=== PATIENT | male | born 2000 | race Hispanic/Latino ===

== ENCOUNTER 2022-12-20 02:01 | Observation (INO) | payer BC ==
[~2022-12-20] VITALS: Ht 167.6 cm; Wt 68.0 kg
[2022-12-20] VITALS (19 sets, daily range): BP systolic 77–105; BP diastolic 45–73
[~2022-12-20 02:01] MED LIST: [UNRECOGNIZED DRUG - REMARK]
[2022-12-20 02:40] LABS: BASO% 0.3 % (0-3); EOS% 1.8 % (0-8); HEMATOCRIT 42.4 % (39.0-50.0); HEMOGLOBIN 14.1 g/dl (14.0-18.0); IMMATURE GRANULOCYTES 0.1 % (0.0-5.0); LYMPH% 19.2 % (15-41); MEAN CELL VOLUME 90.6 fL CALC (80.0-100.0); MEAN CORPUSCULAR HGB 30.1 pG CALC (26.0-32.0); MEAN CORPUSCULAR HGB CONC 33.3 g/dL CAL (32.0-36.0); MONO% 7.8 % (2-13); NEUT# 9.75 thou/uL (1.82-7.42); NEUT% 70.8 % (42-76); RED BLOOD COUNT 4.68 mill/uL (4.70-6.10); RED CELL DISTRI WIDTH 12.6 % (11.5-15.5)
[2022-12-20 02:46] LABS: ALBUMIN 4.8 g/dL (3.2-5.0); ALKALINE PHOSPHATASE 59 u/l (38-126); ANION GAP 16 (6-22 (CALC)); BILIRUBIN, TOTAL 0.8 mg/dL (0.2-1.3); BUN 10 mg/dL (9-20); BUN/CREATININE RATIO 13 (12-20 (CALC)); CARBON DIOXIDE 23 mmol/l (22-30); CHLORIDE 104 mmol/l (95-108); CREATININE 0.8 mg/dL (0.7-1.3); GFR FOR AFR.AMER. > 60 ML/MIN (>=60 (CALC)); GFR OTHER RACES > 60 ML/MIN (>=60 (CALC)); LIPASE 44 u/l (23-300); POTASSIUM 3.9 mmol/l (3.5-5.1); SGOT/AST 22 u/l (17-59); SODIUM 138 mmol/l (137-146); TOTAL PROTEIN 7.5 g/dL (6.3-8.2)
[2022-12-20 02:56] LABS: URINE BILIRUBIN - DIPSTICK SMALL (NEGATIVE); URINE BLOOD DIPSTICK TRACE-INTACT (NEGATIVE); URINE COLOR YELLOW; URINE GLUCOSE - DIPSTICK NEGATIVE (NEGATIVE); URINE KETONE 15 mg/dL (NEGATIVE); URINE LEUK ESTERASE NEGATIVE (NEGATIVE); URINE PROTEIN - DIPSTICK NEGATIVE (NEG-TRACE); URINE SPECIFIC GRAVITY >=1.030; URINE UROBILINOGEN - DIPSTICK 0.2 E.U./dL (0.2)
[2022-12-20 02:57] LABS: URINE NITRITE - DIPSTICK NEGATIVE (Negative)
[2022-12-20] MEDS ORDERED: PERCOCET 5/325M1 TAB PO (08:15)
[2022-12-23] MEDS ORDERED: TORADOL PO (13:44)
[2022-12-23] MEDS ORDERED: ONDANSETRON4 MG PO (13:44)
== END 2022-12-20 11:03 | disposition home or self-care (01) | DRG 343 ==
LOC: ED 02:01 → MS2 05:30
PROVIDERS: Family Medicine; ADMIT Surgery; ATTEND Surgery
PROC: 0DTJ4ZZ Resection of Appendix, Percutaneous Endoscopic Approach (ICD-10-PCS; principal; 2022-12-20)
DX: K35.30 Acute appendicitis with localized peritonitis, without perforation or gangrene (principal)
CPT/HCPCS: G0378; J0131; Q9967

== ENCOUNTER 2022-12-23 14:06 | Emergency (ER) | payer BC ==
[~2022-12-23] VITALS: Ht 165.1 cm; Wt 63.0 kg
[2022-12-23] VITALS (10 sets, daily range): BP systolic 83–106; BP diastolic 53–66
[~2022-12-23 14:06] MED LIST changes: +ONDANSETRON4 MG PO; +PERCOCET 5/325M1 TAB PO; +TORADOL PO
[2022-12-23 14:34] LABS: URINE BILIRUBIN - DIPSTICK NEGATIVE (NEGATIVE); URINE BLOOD DIPSTICK NEGATIVE (NEGATIVE); URINE COLOR YELLOW; URINE GLUCOSE - DIPSTICK NEGATIVE (NEGATIVE); URINE KETONE NEGATIVE (NEGATIVE); URINE LEUK ESTERASE NEGATIVE (NEGATIVE); URINE NITRITE - DIPSTICK NEGATIVE (Negative); URINE PH 6.5 (4.5-8.0); URINE PROTEIN - DIPSTICK NEGATIVE (NEG-TRACE); URINE SPECIFIC GRAVITY 1.015; URINE UROBILINOGEN - DIPSTICK 0.2 E.U./dL (0.2)
[2022-12-23 14:34] LABS: BASO% 0.6 % (0-3); EOS% 7.4 % (0-8); HEMATOCRIT 47.3 % (39.0-50.0); HEMOGLOBIN 15.3 g/dl (14.0-18.0); IMMATURE GRANULOCYTES 0.2 % (0.0-5.0); LYMPH% 40.7 % (15-41); MEAN CELL VOLUME 91.5 fL CALC (80.0-100.0); MEAN CORPUSCULAR HGB 29.6 pG CALC (26.0-32.0); MEAN CORPUSCULAR HGB CONC 32.3 g/dL CAL (32.0-36.0); MONO% 9.8 % (2-13); NEUT# 2.76 thou/uL (1.82-7.42); NEUT% 41.3 % (42-76); RED BLOOD COUNT 5.17 mill/uL (4.70-6.10); RED CELL DISTRI WIDTH 12.2 % (11.5-15.5)
[2022-12-23 14:50] LABS: ALBUMIN 4.8 g/dL (3.2-5.0); ALKALINE PHOSPHATASE 67 u/l (38-126); BUN 9 mg/dL (9-20); BUN/CREATININE RATIO 12 (12-20 (CALC)); CHLORIDE 99 mmol/l (95-108); CREATININE 0.7 mg/dL (0.7-1.3); GFR FOR AFR.AMER. > 60 ML/MIN (>=60 (CALC)); GFR OTHER RACES > 60 ML/MIN (>=60 (CALC)); POTASSIUM 4.6 mmol/l (3.5-5.1); SODIUM 137 mmol/l (137-146); TOTAL PROTEIN 7.8 g/dL (6.3-8.2)
[2022-12-23 15:06] LABS: ANION GAP 14 (6-22 (CALC)); BILIRUBIN, TOTAL 0.3 mg/dL (0.2-1.3); CARBON DIOXIDE 29 mmol/l (22-30); SGOT/AST 46 u/l (17-59)
[2022-12-23] MEDS ORDERED: GLYCERIN ADULT2 GM PR (17:56)
== END 2022-12-23 18:14 | disposition home or self-care (01) | DRG 392 ==
LOC: ED 14:06
PROVIDERS: Nurse Practitioner
DX: K59.00 Constipation, unspecified (principal); F17.200 Nicotine dependence, unspecified, uncomplicated; Z98.890 Other specified postprocedural states
CPT/HCPCS: Q9967